=== PATIENT | male | born 1965 | race Two or more races ===

== ENCOUNTER 2017-08-29 12:31 | Emergency (ER) | payer SELFPAY ==
[~2017-08-29] VITALS: Ht 188 cm; Wt 88.5 kg
[2017-08-29 12:45] VITALS: BP 117/60
[2017-08-29 14:03] LABS: BASOPHILS % (AUTO) 1.6 % (0.0-2.0); HEMOGLOBIN 13.9 G/DL (14.2-18.0); LYMPHOCYTES % (AUTO) 24.5 % (20.0-45.0); MEAN CORPUSCULAR VOLUME 89 FL (80-99); MONOCYTES % (AUTO) 15.7 % (1.0-10.0); NEUTROPHILS % (AUTO) 57.1 % (45.0-75.0); PLATELET COUNT 155 K/UL (150-450); RED BLOOD COUNT 4.97 M/UL (4.70-6.10); RED CELL DISTRIBUTION WIDTH 12.5 % (11.6-14.8); WHITE BLOOD COUNT 5.4 K/UL (4.8-10.8)
[2017-08-29 14:05] LABS: ANION GAP 16 mmol/L (5-15); BLOOD UREA NITROGEN 30 mg/dL (7-18); CARBON DIOXIDE 22 MMOL/L (21-32); CHLORIDE 107 MMOL/L (98-107); CREATININE 1.1 MG/DL (0.55-1.30); POTASSIUM 3.9 MMOL/L (3.5-5.1); SODIUM 145 MMOL/L (136-145)
[2017-08-29 14:18] LABS: ALANINE AMINOTRANSFERASE 27 U/L (12-78); ALBUMIN 3.9 G/DL (3.4-5.0); ALKALINE PHOSPHATASE 63 U/L (46-116); ASPARTATE AMINO TRANSFERASE 41 U/L (15-37); BILIRUBIN,TOTAL 0.6 MG/DL (0.2-1.0)
--- NOTE | 2017-08-29 14:25 | Diagnostic Imaging Report ---
Indications: Altered mental status Technique: Spiral acquisitions obtained through the brain. Angled axial and coronal 5 x 5 mm slices were reconstructed. Total dose length product 1945.94 mGycm. CTDI vol(s) 70.38,70.38 mGy. Dose reduction achieved using automated exposure control Comparison: None. Findings: No acute intracranial hemorrhage or edema. No mass effect or midline shift. Normal hale-white differentiation. Normal-sized ventricles and extra axial CSF spaces. Visualized orbits and sinuses are unremarkable. Intact calvarium. Impression: Negative The CT scanner at [facility] is accredited by the [employer] and the scans are performed using protocols designed to limit radiation exposure to as low as reasonably achievable to attain images of sufficient resolution adequate for diagnostic evaluation.
--- NOTE | 2017-08-29 14:39 | Emergency Room Report ---
History of Present Illness General Chief Complaint: Altered Level of Consciousness Source: Patient, EMS (AleaJosyemily Alcantar DO) Present Illness HPI This patient is brought in by EMS. He was trespassing on another person's property. He was also acting bizarrely. Earlier in the day he was fleeing from police. EMS were called because he was sleeping on someone's property and would not leave the property. EMS report he is altered and would not give his name. He has no specific complaints. He appears homeless. (Josy Cosby DO) Allergies: Coded Allergies: UNABLE TO ASSESS (Unverified , 08/29/17) Patient History Past Medical History: unable to obtain Past Surgical History: unable to obtain Pertinent Family History: unable to obtain Reviewed Nursing Documentation: PMH: Agreed; PSxH: Agreed (Josy Cosby DO) Nursing Documentation-PMH Past Medical History: Deferred (Josy Cosby DO) Review of Systems All Other Systems: limited (AleaJosy MikelMalick CONTRERAS) Physical Exam Vital Signs Date Time Temp Pulse Resp B/P (MAP) Pulse Ox O2 Delivery O2 Flow Rate FiO2 08/29/17 12:25 93 16 110/70 97 Room Air Sp02 EP Interpretation: reviewed, normal General Appearance: no apparent distress, alert, GCS 15, non-toxic, other - Poor personal hygiene Head: normocephalic, atraumatic Eyes: bilateral eye normal inspection, bilateral eye PERRL ENT: hearing grossly normal, normal pharynx, no angioedema, normal voice Neck: full range of motion, supple/symm/no masses Respiratory: chest non-tender, lungs clear, normal breath sounds, no respiratory distress, no retraction, no accessory muscle use, speaking full sentences Cardiovascular #1: regular rate, rhythm, no edema Gastrointestinal: normal bowel sounds, non tender, soft, non-distended, no guarding, no rebound Rectal: deferred Musculoskeletal: back normal, normal range of motion Neurologic: alert, responsive, other - Slurred speech, flight of thoughts and ideas. Unable to fully assess. Psychiatric: mood/affect normal, no suicidal/homicidal ideation Skin: warm/dry (Josy Cosby DO) Medical Decision Making Diagnostic Impression: Primary Impression: Behavioral change ER Course I suspect this patient is altered secondary to drug intoxication. Patient's exam is nonfocal. Patient's laboratory workup is unremarkable. The patient has he had to give a urine drug screen. Given the altered mental status, I did obtain a CT of the head which was unremarkable. I did not identify an emergency medical condition. The patient was discharged without any emergency medical condition. Laboratory Tests Test 08/29/17 13:30 White Blood Count 5.4 K/UL (4.8-10.8) Red Blood Count 4.97 M/UL (4.70-6.10) Hemoglobin 13.9 G/DL (14.2-18.0) L Hematocrit 44.0 % (42.0-52.0) Mean Corpuscular Volume 89 FL (80-99) Mean Corpuscular Hemoglobin 28.0 PG (27.0-31.0) Mean Corpuscular Hemoglobin Concent 31.6 G/DL (32.0-36.0) L Red Cell Distribution Width 12.5 % (11.6-14.8) Platelet Count 155 K/UL (150-450) Mean Platelet Volume 6.7 FL (6.5-10.1) Neutrophils (%) (Auto) 57.1 % (45.0-75.0) Lymphocytes (%) (Auto) 24.5 % (20.0-45.0) Monocytes (%) (Auto) 15.7 % (1.0-10.0) H Eosinophils (%) (Auto) 1.0 % (0.0-3.0) Basophils (%) (Auto) 1.6 % (0.0-2.0) Sodium Level 145 MMOL/L (136-145) Potassium Level 3.9 MMOL/L (3.5-5.1) Chloride Level 107 MMOL/L (98-107) Carbon Dioxide Level 22 MMOL/L (21-32) Anion Gap 16 mmol/L (5-15) H Blood Urea Nitrogen 30 mg/dL (7-18) H Creatinine 1.1 MG/DL (0.55-1.30) Estimate Glomerular Filtration Rate > 60 mL/min (>60) Glucose Level 74 MG/DL (74-106) Calcium Level 9.0 MG/DL (8.5-10.1) Total Bilirubin 0.6 MG/DL (0.2-1.0) Aspartate Amino Transferase (AST) 41 U/L (15-37) H Alanine Aminotransferase (ALT) 27 U/L (12-78) Alkaline Phosphatase 63 U/L (46-116) Troponin I 0.001 ng/mL (0.000-0.056) Total Protein 7.7 G/DL (6.4-8.2) Albumin 3.9 G/DL (3.4-5.0) Globulin 3.8 g/dL Albumin/Globulin Ratio 1.0 (1.0-2.7) Thyroid Stimulating Hormone (TSH) 0.765 uiU/mL (0.358-3.740) Serum Alcohol < 3 mg/dL (Josy Cosby DO) ER Course I received signout from Dr. Josy Hernandez 52-year-old male with altered mental status He has been sleeping comfortably, workup has been negative He is now woken up, now ANO 3 States that he is hungry, so he is tolerating by mouth here He is not acutely psychotic, no SI no HI He is stable for discharge home (Luz Maria Soria M.D.) EKG Diagnostic Results Rate: normal Rhythm: NSR ST Segments: no acute changes (Josy Cosby DO) Rhythm Strip Diag. Results EP Interpretation: yes Rate: 80's Rhythm: NSR, no PVC's, no ectopy (Josy Cosby DO) CT/MRI/US Diagnostic Results CT/MRI/US Diagnostic Results : Imaging Test Ordered: CT head Impression No acute findings. See official report. (Josy Cosby DO) Last Vital Signs Date Time Temp Pulse Resp B/P (MAP) Pulse Ox O2 Delivery O2 Flow Rate FiO2 08/29/17 12:25 93 16 110/70 97 Room Air (Josy Cosby DO) Disposition: HOME, SELF-CARE Condition: Improved Josy Cosby DO Aug 29, 2017 14:39 Luz Maria Soria M.D. Aug 29, 2017 16:59
[2017-08-29 15:00] VITALS: BP 104/70
[2017-08-29 16:25] LABS: APPEARANCE,URINE CLEAR; BILIRUBIN, URINE NEGATIVE (NEGATIVE); GLUCOSE, URINE (UA) NEGATIVE (NEGATIVE); KETONES,URINE 4+ (NEGATIVE); LEUKOCYTE ESTERASE ,URINE NEGATIVE (NEGATIVE); NITRITE,URINE NEGATIVE (NEGATIVE); PH,URINE 5 (4.5-8.0); PROTEIN,URINE 2+ (NEGATIVE); UROBILINOGEN,URINE NORMAL MG/DL (0.0-1.0)
[2017-08-29 16:29] LABS: COLOR,URINE YELLOW
[2017-08-29 17:28] VITALS: BP 149/91
[2017-08-29 17:35] VITALS: BP 149/91
== END 2017-08-29 17:35 | disposition home or self-care (01) ==
LOC: EDBD 12:31 → EMR 13:02
DX: R41.82 Altered mental status, unspecified (principal)
CPT/HCPCS: 36415; 70450; 80053; 80307; 81003; 84443; 84484; 85025; 96374; 99284; G0480; 80329